=== PATIENT | female | born 1955 | race Caucasian/White ===

== ENCOUNTER 2019-06-18 11:52 | Emergency (ER) | payer OTHER ==
--- NOTE | 2019-06-18 13:32 | CR ---
Chest: Portable view of the chest was obtained. Comparison: Prior chest x-ray of 02/10/12. Heart size and mediastinum are within normal limits for portable technique. Lungs are clear with no acute parenchymal change. Mild scoliosis is present within the spine. Impression: 1. Nothing acute is appreciated on portable chest x-ray. Diagnostic code #2 This report was dictated in MDT
--- NOTE | 2019-06-18 13:43 | EDM.PDOC ---
ED HPI GENERAL MEDICAL PROBLEM - General Chief Complaint: Respiratory Problem Stated Complaint: RAPID HEART RATE Time Seen by Provider: 06/18/19 12:00 Source of Information: Reports: Patient, RN Notes Reviewed - History of Present Illness INITIAL COMMENTS - FREE TEXT/NARRATIVE: 63 yr old female sent over from [facility] due to not feeling well, mild tachycardia at screening clinic. She became ill about 5 days ago with chills, achiness, mild sore throat, nasal and sinus congestion, occasional cough, off and on Tran. No definite fever. She has not been short of breath. Cough mostly nonprod. She did have a covid screen done at the clinic just a short time ago. They were concerned about her heart rate over 100. Generalized Pain Score (Numeric/FACES): 5 - Related Data Allergies Allergy/AdvReac Type Severity Reaction Status Date / Time No Known Allergies Allergy Verified 06/18/19 12:19 Home Meds: Home Meds Amoxicillin/Clavulanate K [Augmentin 875 MG] 1 tab PO BID #20 tablet 01/30/14 [ Rx] Ondansetron [Zofran ODT] 4 mg PO Q6H PRN #4 tab.dis 01/30/14 [Rx] Past Medical History Cardiovascular History: Reports: High Cholesterol, Hypertension Endocrine/Metabolic History: Reports: Diabetes, Type II - Past Surgical History HEENT Surgical History: Reports: Cataract Surgery GI Surgical History: Reports: Appendectomy, Cholecystectomy Female Surgical History: Reports: Hysterectomy Social & Family History - Tobacco Use Smoking Status *Q: Current Every Day Smoker Years of Tobacco use: 47 Packs/Tins Daily: 0.5 - Caffeine Use Caffeine Use: Reports: Coffee, Soda - Recreational Drug Use Recreational Drug Use: No ED ROS GENERAL - Review of Systems Review Of Systems: See Below Constitutional: Reports: Chills. Denies: Fever, Diaphoresis HEENT: Reports: Rhinitis, Throat Pain Respiratory: Reports: Cough. Denies: Shortness of Breath, Wheezing, Pleuritic Chest Pain Cardiovascular: Denies: Chest Pain GI/Abdominal: Reports: Decreased Appetite. Denies: Abdominal Pain, Nausea, Vomiting Musculoskeletal: Reports: Other (generalized achiness) Skin: Denies: Rash Neurological: Reports: Headache ED EXAM, GENERAL - Physical Exam Exam: See Below General Appearance: Alert, No Apparent Distress Eye Exam: Bilateral Eye: PERRL Head: Atraumatic. No: Facial Swelling Neck: Supple Respiratory/Chest: No Respiratory Distress Extremities: Normal Inspection, Normal Range of Motion Neurological: Alert, Oriented, No Motor/Sensory Deficits Skin Exam: Warm, Dry, Normal Color, No Rash Course - Vital Signs Last Recorded V/S: Last Vital Signs Temp 99.4 F 06/18/19 12:13 Pulse 115 H 06/18/19 12:13 Resp 16 06/18/19 12:13 BP 136/92 H 06/18/19 12:13 Pulse Ox 99 06/18/19 12:13 - Re-Assessments/Exams Free Text/Narrative Re-Assessment/Exam: 06/18/19 14:43 Her sx are very compatable and suggestive for covid viral infection. Her CXR is nl, sats are 99 %. Heart 99 when I walked into the room. Has been running around 100 to 108 for the most part when in the room, sinus rythm and sinus tach , no ectopy. She is safe to go home. Return precautions given. Discharge instr. as documented. Departure - Departure Time of Disposition: 13:39 Disposition: Home, Self-Care 01 Condition: Fair Clinical Impression: URI (upper respiratory infection) Qualifiers: URI type: unspecified viral URI Qualified Code(s): J06.9 - Acute upper respiratory infection, unspecified - Discharge Information Instructions: Upper Respiratory Infection, Adult, [id number], Coronavirus Information 05/27/19 Referrals: Leora Henley PA-C [Primary Care Provider] - Forms: ED Department Discharge, ED Return to Work/School Form Additional Instructions: You likely do have the covid Viral illness based on your past and current symptoms. Self quarantine until you do get results of the test. If your test is negative be aware that 10 to 25 percent of negatives are believed to be false negatives so right now your symptoms are more important and probable more acurate to diagnose the illness. The important thing today is that you do not have pneumonia and your oxygen level is really good at 99 to 100 per cent. No work the remainder of this week. Drink plenty of water. Tylenol if needed. You should be able to safely return to work after you have been symptom free and afebrile for at least 3 to 5 days. Patient given verbal instr. to be sure and return to ED at any time if she developes severe difficulty breathing or as otherwise needed. Sepsis Event Note - Evaluation Sepsis Screening Result: Possible Sepsis Risk - Focused Exam Vital Signs: Vital Signs Temp Pulse Resp BP Pulse Ox 06/18/19 12:13 99.4 F 115 H 16 136/92 H 99 Date Exam was Performed: 06/18/19 Time Exam was Performed: 14:39
== END 2019-06-18 13:25 | disposition home or self-care (01) ==
LOC: JD.ED 11:52
DX: J06.9 Acute upper respiratory infection, unspecified (principal); I10 Essential (primary) hypertension; F17.210 Nicotine dependence, cigarettes, uncomplicated
CPT/HCPCS: 71045; 71045-26; 99282; 99284-25

== ENCOUNTER 2024-05-16 11:30 | Emergency (ER) | payer MEDICARE, OTHER ==
[2024-05-16 11:56] LABS: BASOPHILS ABSOLUTE AUTO 0.1 K/mm3 (0.0-0.2); BASOPHILS PERCENT AUTO 0.7 % (0.0-1.0); EOSINOPHILS ABSOLUTE AUTO 0.1 K/mm3 (0.0-0.4); EOSINOPHILS PERCENT AUTO 0.5 % (0.0-6.0); HEMATOCRIT 44.2 % (37.0-47.0); HEMOGLOBIN 14.8 gm/dl (12.0-16.0); IMMATURE GRAN ABSOLUTE AUTO 0.04 K/mm3 (0.00-0.05); IMMATURE GRAN PERCENT AUTO 0.3 % (0.0-0.4); LYMPHOCYTES ABSOLUTE AUTO 3.3 K/mm3 (1.0-4.8); MEAN CORPUSCULAR HEMOGLOBIN 30.7 pg (28.0-32.0); MEAN CORPUSCULAR HGB CONC 33.5 g/dl (32.0-36.0); MEAN CORPUSCULAR VOLUME 91.7 fl (83.0-99.0); MEAN PLATELET VOLUME 10.8 fl (9.4-12.3); MONOCYTES ABSOLUTE AUTO 0.9 K/mm3 (0.0-0.8); NEUTROPHILS ABSOLUTE AUTO 7.9 K/mm3 (1.8-7.7); NEUTROPHILS PERCENT AUTO 64.5 % (41.0-71.0); PLATELET COUNT,PLT 251 K/mm3 (150-400); RED BLOOD CELL COUNT 4.82 M/mm3 (4.10-5.30); WHITE BLOOD CELL COUNT,WBC 12.18 K/mm3 (3.9-11.3)
[2024-05-16 12:11] LABS: INR 1.01; PROTHROMBIN TIME 10.7 SECONDS (9.7-12.0)
[2024-05-16 12:13] LABS: PTT,PARTIAL THROMBOPLSTIN TIME 24.5 SECONDS (21.7-31.4)
[2024-05-16 12:24] LABS: D-DIMER QUANTITATIVE 8.32 mg/L (0.19-0.50)
[2024-05-16 12:25] LABS: A/G RATIO 0.9 (1-2); ALBUMIN 3.9 g/dl (3.4-5.0); BUN/CREATININE RATIO 23.8 (14-18); C-REACTIVE PROTEIN 2.9 mg/dL (<0.30); CALCIUM 9.4 mg/dL (8.5-10.1); CREATININE 1.3 mg/dL (0.55-1.02); EST CRCL DRUG DOSING (CG) 39.31 mL/min; MAGNESIUM 1.7 mg/dL (1.8-2.4); PROTEIN TOTAL,TP 8.1 g/dl (6.4-8.2)
[2024-05-16] MEDS ORDERED: Sodium Chloride 0.9% 10 ML Syringe FLUSH PRN (12:40)
[2024-05-16] MEDS ORDERED: Sodium Chloride 0.9% 100 ML IV SCH (12:45)
[2024-05-16] MEDS: Sodium Chloride 0.9% 1,000 ML IV SCH (12:48)
[2024-05-16] MEDS: Iopamidol 755 Mg/ML 100 ML Bottle IVPUSH ONE (13:03)
[2024-05-16] MEDS ORDERED: Heparin Sodium 5,000 Units/ML Vial IVPUSH ONE (13:38)
[2024-05-16] MEDS: Heparin Sodium/D5W 250 ML IV SCH (14:14)
[2024-05-16] MEDS: Heparin Sodium 5,000 Units/ML Vial IVPUSH ONE (14:16)
== END 2024-05-16 16:00 ==
LOC: JD.ED 11:30
DX: I26.99 Other pulmonary embolism without acute cor pulmonale (principal); I10 Essential (primary) hypertension; E78.00 Pure hypercholesterolemia, unspecified; E11.9 Type 2 diabetes mellitus without complications; Z79.899 Other long term (current) drug therapy; Z90.49 Acquired absence of other specified parts of digestive tract
CPT/HCPCS: 36415; 71045; 71275; 80053; 82947; 83735; 83880; 84484; 85025; 85379; 85610; 85730; 86140; 87428; 93005; 96361; 96365; 96366; 99285; J1644; J7030; Q9967; 93010